=== PATIENT | male | born 1990 | race Caucasian/White ===

== ENCOUNTER 2018-12-26 02:20 | Emergency (ER) | payer BC ==
[~2018-12-26] VITALS: Ht 185.4 cm; Wt 65.8 kg
[2018-12-26] MEDS ORDERED: ZOLOFT50 M1 PO (02:36)
[2018-12-26] MEDS ORDERED: HYDROXYZINE PAM25 M1 PO (02:37)
[2018-12-26] MEDS ORDERED: TROSPIUM CHLORI20 MG PO (02:38)
[2018-12-26] MEDS ORDERED: PROAIR HFA8.5 GM INH (02:38)
[2018-12-26 02:52] LABS: ABSOLUTE BASOPHILS 0.1 thou/uL (0.0-0.2); ABSOLUTE EOSINOPHILS 0.3 thou/uL (0.0-0.7); ABSOLUTE MONOCYTES 0.6 thou/uL (0.0-1.2); ABSOLUTE NEUTROPHILS 3.4 thou/uL (1.6-8.1); BASOPHILS 0.9 %; HEMOGLOBIN 14.3 gm/dL (14.0-18.0); LYMPHOCYTES 40.9 %; MCH 29.5 pg (26.0-34.0); MCHC 33.9 g/dL (28.0-37.0); MCV 86.9 fL (80.0-100.0); MONOCYTES 7.5 %; MPV 8.6 fl. (7.2-11.1); NUCLEATED RBCS 0 /100WBC; PLATELET COUNT* 236 thou/uL (150-400); POLYS 46.7 %; RBC 4.83 mil/uL (4.50-6.00); RDW-CV 13.4 % (10.5-14.5); WBC 7.4 thou/uL (4.0-11.0)
[2018-12-26 03:00] LABS: CALCIUM 9.5 mg/dL (8.5-10.1); CREATININE 0.8 mg/dL (0.6-1.3); POTASSIUM 3.9 mmol/L (3.5-5.1)
[2018-12-26 03:11] LABS: ALBUMIN 4.1 g/dL (3.4-5.0); MAGNESIUM 1.8 mg/dL (1.8-2.4); TOTAL BILIRUBIN 0.3 mg/dL (<0.1-1.0); TOTAL PROTEIN 7.4 g/dL (6.4-8.2)
[2018-12-26 05:48] VITALS: BP 103/60
--- NOTE | 2018-12-26 16:57 | EKG ---
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
== END 2018-12-26 05:51 | disposition home or self-care (01) ==
LOC: M.ERS 02:20
PROVIDERS: Emergency Medicine Emergency Medical Services
DX: R00.2 Palpitations (principal); R07.89 Other chest pain; F41.9 Anxiety disorder, unspecified; F17.210 Nicotine dependence, cigarettes, uncomplicated; Z91.040 Latex allergy status